=== PATIENT | female | born 1995 | race Caucasian/White ===

== ENCOUNTER 2017-12-06 18:24 | Emergency (ER) | payer OTHER ==
[~2017-12-06] VITALS: Ht 165.1 cm; Wt 53.9 kg
[2017-12-06 18:32] VITALS: Ht 165.1 cm; Wt 53.9 kg
--- NOTE | 2017-12-06 19:59 | EMERGENCY ROOM VISIT NOTE ---
History First contact with patient: 18:49 Chief Complaint: GROIN PAIN Stated Complaint: SLIGHTLY PUNCTURED INJURY IN THE GROIN AREA History of Present Illness The patient is a 22 year old female who presents to the Emergency Room with complaints of a straddle injury. 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 She fell off of a boat and struck her groin on a metal bar. She reports a dull pain in her pelvis rated a 2/10. She is concerned about a vaginal laceration/tear, as she did have some bleeding immediately afterward. She states the bleeding has slowed. She has been able to urinate without difficulty. Pain is worsened with movement, sitting or walking. She denies any other injuries. Review of Systems A complete 10 point review of systems was reviewed with the patient with pertinent positives and negatives as per history of present illness. All else were negative. Past Medical/Surgical History Medical Problems: (1) No significant active problems Social History Smoking Status: Never Smoker Housing Status: lives with roommate Occupation Status: [employer] student Physical Exam Vital Signs Date Time Temp Pulse Resp B/P (MAP) Pulse Ox O2 Delivery O2 Flow Rate FiO2 12/06/17 20:04 36.7 76 16 106/66 99 12/06/17 20:01 76 16 106/66 99 Room Air 12/06/17 18:32 36.7 85 18 120/79 97 Room Air Physical Exam VITALS: Vitals are noted on the nurse's note and reviewed by myself. Vital signs stable. GENERAL: This is a 22-year-old female, in no acute distress, nondiaphoretic, well-developed well-nourished. PELVIC: There is a small superficial abrasion superior to the vulva with no significant active bleeding. The tissue surrounding this is mildly erythematous and edematous. No laceration to the labia. NEURO: Patient was alert and oriented to person place and time. Medical Decision & Procedures Medical Decision The patient was evaluated as above. She presents for evaluation following a pelvic straddle injury. Examination reveals a superficial abrasion and fortunately no lacerations. Urine dipstick was obtained and showed no blood. Patient has been able to urinate without difficulty. Conservative measures were discussed with the patient. She was advised to keep the area clean and apply antibiotic ointment daily. She was advised to perform sits baths and apply cool compresses as needed. She verbalized understanding of my assessment and treatment plan and was discharged home in good condition. Medication Reconcilliation Current Medication List: was personally reviewed by me Blood Pressure Screening Patient's blood pressure: Normal blood pressure Impression Primary Impression: Pelvic straddle injury Departure Information Dispostion Home / Self-Care Condition GOOD Referrals No Doctor, Assigned (PCP) Patient Instructions [facility] Additional Instructions For pain control, you can use the following [id number] medicines (if >12 yo): - Regular strength (325mg/tab) Tylenol (acetaminophen) 2 tabs every 4-6 hours as needed. Do not exceed 12 tablets in a 24 hour period. Avoid taking more than 4 grams (4000 mg) of Tylenol per day. This includes any other sources of acetaminophen you may take on a regular basis. - Regular strength (200 mg/tab) Advil (ibuprofen) 1-2 tabs every 4-6 hours as needed. Do not exceed a dose of 3200 mg per day. Apply a small amount of antibiotic ointment to the abrasion once daily. You may apply ice or a cool compress to the area for symptomatic relief. You may do Sitz baths to help with pain. Follow-up with [facility] for any concerns. Problem Qualifiers Primary Impression: Pelvic straddle injury Encounter type: initial encounter Qualified Codes: S39.83XA - Other specified injuries of pelvis, initial encounter
[2017-12-06 20:04] VITALS: BP 106/66; PULSE 76; TEMP 36.7; O2SAT 99
== END 2017-12-06 20:05 | disposition home or self-care (01) ==
LOC: C.EDB 18:25 → C.EDD 20:05
DX: S39.83XA Other specified injuries of pelvis, initial encounter (principal); V93.39XA Fall on board unspecified watercraft, initial encounter